=== PATIENT | female | born 1985 | race Hispanic/Latino ===

== ENCOUNTER 2019-09-15 17:10 | Inpatient (IN) | payer BC, SELFPAY ==
[~2019-09-15 17:10] MED LIST: Lidocaine 2% MPF 10 ML AMP (For Epidural Use) ONE
[2019-09-15] MEDS ORDERED: hydrALAZINE 20 MG/ML VIAL SLOW IVP PRN (18:44)
[2019-09-15 19:09] LABS: #Eosinphils 0.1 thou/uL (0.0-0.7); #Lymphocytes 1.3 thou/uL (1.20-3.40); #Monocytes 0.4 thou/uL (0.11-0.59); #Neutrophils 5.8 thou/uL (1.40-6.50); %Basophils 0.5 % (0.0-1.0); %Eosinophils 1.8 % (0.0-10.0); %Lymphocytes 16.9 % (21.0-51.0); %Monocytes 5.1 % (0.0-10.0); %Neutrophils 75.7 % (42.0-75.0); Hemoglobin 11.1 g/dL (12.0-16.0); Mean Corpuscular HGB CONC 34.1 g/dL (32.0-36.0); Mean Corpuscular Hemoglobin 27.9 pg (27.0-31.0); Mean Corpuscular Volume 81.8 fL (78.0-98.0); Platelet Count 193 thou/uL (130-400); RBC Distribution Width 13.6 % (11.5-14.5); Red Blood Cell (RBC) Count 3.99 mill/uL (4.20-5.40); White Blood Cell (WBC) Count 7.7 thou/uL (4.8-10.8)
[2019-09-15 19:24] LABS: ALT (SGPT) 33 U/L (8-55); AST (SGOT) 52 U/L (5-34); Albumin 3.2 g/dL (3.5-5.0); Alkaline Phosphatase 268 U/L (40-110); Anion Gap 12 mmol/L (10-20); BUN (Urea Nitrogen) 8 mg/dL (7.0-18.7); Bilirubin, Total 0.2 mg/dL (0.2-1.2); Calc. Creatinine Clearance 0 mL/min (70-130); Calcium 8.6 mg/dL (7.8-10.44); Carbon Dioxide 22 mmol/L (22-29); Chloride 107 mmol/L (98-107); Estimated GFR-MDRD Greater than 90; Globulin 3.8 g/dL (2.4-3.5); Glucose 86 mg/dL (70-105); Potassium 3.8 mmol/L (3.5-5.1); Sodium 137 mmol/L (136-145); Uric Acid 4.1 mg/dL (2.6-6.0)
[2019-09-15 19:25] LABS: Creatinine, Urine Less than 20.00 mg/dL (47-110); Protein, Urine Random Quant Less than 10 mg/dL (1-14)
[2019-09-15] MEDS ORDERED: Lidocaine 1% (PF) 30 ML VIAL SC PRN (20:13)
[2019-09-15] MEDS ORDERED: NS / Oxytocin 40 units/1000ml 1,000 ML IV PRN (20:13)
[2019-09-15] MEDS ORDERED: Promethazine HCl 25 MG/ML VIAL IM PRN (20:13)
[2019-09-15] MEDS ORDERED: Ondansetron PF 4 MG/2 ML Vial IVP PRN (20:13)
[2019-09-15] MEDS ORDERED: Ibuprofen 800 MG TAB PO PRN (20:13)
[2019-09-15] MEDS ORDERED: Misoprostol 100 MCG TAB VAG SCH (20:15)
--- NOTE | 2019-09-15 20:24 | PDOC.FPROB ---
FMR OB H&P: HPI - History of Present Illness Chief Complaint: Sent over for elevated BP's Indentification: 34 year old at 38.6 wks by LMP/9.2 History of Present Illness: 34 year old at 38.6 wks by LMP/9.2 presents with elevated BP's during ultrasound clinic this afternoon. BP's 140's and 150's in clinic. Patient sent over for evaluation of pre-E. Patient high risk with rheumatoid arthritis on Humira during which was discontinued around 34 WGA. Patient denies scotoma, RUQ pain, swelling, chest pain, shortness of breath. Patient endorses good movement. 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: No history of STD's - Surgical History Sx History: Denies - Social History Social History: Denies tobacco, alcohol, or drug use FMR OB H&P: Medications - Current Allergies/Adverse Reactions: Allergies Allergy/AdvReac Type Severity Reaction Status Date / Time No Known Allergies Allergy Verified 09/15/19 18:59 FMR OB H&P: ROS - Review of Systems General: denies: fever/chills, weight/appetite/sleep changes Eyes: denies: vision changes, scotomas ENT: denies: nasal congestion, rhinorrhea, sore throat Cardiovascular: denies: chest pain, palpitation, edema Respiratory: denies: cough, congestion Gastrointestinal: denies: abdominal pain, nausea, vomiting, diarrhea Genitourinary (Female): denies: dysuria, vaginal discharge, vaginal bleeding, contractions Musculoskeletal: reports: pain (chronic RA related aches and pains). denies: redness, swelling Neurologic: denies: numbness, syncope Integumentary: denies: itching, rash Hematologic/Lymphatic: denies: prolonged or excessive bleeding Psychological: denies: depression, anxiety FMR OB H&P: Vital Signs - Maternal Vital signs: BP Pulse 110 Afebrile - Heart Tones Baseline: 130 Variability: moderate Acceleration: present Deceleration: absent [place] contractions every: Reactive FMR OB H&P: Physical Exam - Physical Exam General: NAD, awake, alert and oriented HEENT: MMM, grossly normal vision, grossly normal hearing Heart: RRR, no murmurs/rubs/gallops, pulses present General: CTAB, no respiratory distress Abdomen: soft, gravid, non-tender Musculoskeletal: pulses present, FROM in all four extremities Neurological: DTR +2, no clonus, no tremor, no focal deficit Skin: no rash, capillary refill <2 seconds Lymphatic: no unusual bruising or bleeding, no purpura Psychiatric: intact recent and remote memory, good judgement and insight, normal mood and affect FMR OB H&P: Results - Labs Lab results: Laboratory Results - last 24 hr 09/15/19 09/15/19 09/15/19 18:54 18:54 18:54 WBC 7.7 RBC 3.99 L Hgb 11.1 L Hct 32.6 L MCV 81.8 MCH 27.9 MCHC 34.1 RDW 13.6 Plt Count 193 MPV 10.0 Neutrophils % 75.7 H Lymphocytes % 16.9 L Monocytes % 5.1 Eosinophils % 1.8 Basophils % 0.5 Neutrophils # 5.8 Lymphocytes # 1.3 Monocytes # 0.4 Eosinophils # 0.1 Basophils # 0.0 Sodium 137 Potassium 3.8 Chloride 107 Carbon Dioxide 22 Anion Gap 12 BUN 8 Creatinine 0.58 L Estimated GFR (MDRD) Greater than 90 Glucose 86 Uric Acid 4.1 Calcium 8.6 Total Bilirubin 0.2 AST 52 H ALT 33 Alkaline Phosphatase 268 H Serum Total Protein 7.0 Albumin 3.2 L Globulin 3.8 H Albumin/Globulin Ratio 0.8 L U Random Total Protein Less than 10 Urine Creatinine Less than 20.00 L FMR OB H&P: A/P - Problem List (1) Gestational hypertension Current Visit: Yes Status: Acute Code(s): O13.9 - GESTATIONAL HTN W/O SIGNIFICANT PROTEINURIA, UNSP TRIMESTER (2) Rheumatoid arthritis Current Visit: Yes Status: Acute Code(s): M06.9 - RHEUMATOID ARTHRITIS, UNSPECIFIED (3) Term Current Visit: Yes Status: Acute Code(s): Z34.90 - ENCNTR FOR SUPRVSN OF NORMAL , UNSP, UNSP TRIMESTER Disposition: 34 year old at 38.6 wks by LMP/9.2 wk chioma presents for pre-E/gHTN workup. Patient noted to have several elevated BP's during triage. Will admit for induction for gHTN. mIOL for gHTN - BP's have been elevated >140/90 over a period of four hours - Pre-E labs unremarkable aside from elevated AST, which was not two times upper limit of normal - SVE: /-2, posterior, soft - Will proceed with cytotec - Monitor for signs/symptoms of pre-E severe features, including elevated BP's > 160/110. If severe features arise, start Mg. Rheumatoid arthritis - Patient on humira until 32 wks - She did not require any PRN steroids during this - She has had routine q4k growth scans which have been S=D; no concern for IUGR - Weekly testing has been reassuring. BPP 8/8 today. Anemia of - Patient on iron supplementation during . Dispo: Admit to L&D for mIOL for gHTN. Will start with cytotec induction. Discussion: Date/Time: 09/15/192017 This H&P was discussed with Dr. Watt who agrees with the above documentation and plan. Signature: Obdulia Fleming DO PGY-2 Addendum - Attending - Attending Attestation Date/Time: 09/15/19 0412 I personally evaluated the patient and discussed the management with Dr. Fleming. I agree with the History, Examination, Assessment and Plan documented above with any addition or exceptions noted below.
[2019-09-15] MEDS: Lactated Ringer's 1,000 ML IV SCH (21:19)
[2019-09-15 21:48] LABS: Hemoglobin 11.1 g/dL (12.0-16.0); Mean Corpuscular HGB CONC 33.8 g/dL (32.0-36.0); Mean Corpuscular Hemoglobin 27.5 pg (27.0-31.0); Mean Corpuscular Volume 81.3 fL (78.0-98.0); Mean Platelet Volume 10.9 fL (7.4-10.4); Platelet Count 203 thou/uL (130-400); RBC Distribution Width 13.9 % (11.5-14.5); Red Blood Cell (RBC) Count 4.02 mill/uL (4.20-5.40); White Blood Cell (WBC) Count 8.3 thou/uL (4.8-10.8)
[2019-09-15 22:24] LABS: Syphilis Antibody Nonreactive (Nonreactive); Syphilis Antibody Index 0.04 S/CO (<1.00 Non-Reactive)
[2019-09-15 22:56] LABS: Hep B Surf Ag Non-Reactive S/CO (NonReactive)
[2019-09-16] MEDS: Misoprostol 100 MCG TAB VAG SCH ×5 (00:19→23:51)
[2019-09-16] MEDS: Lactated Ringer's 1,000 ML IV SCH (00:30)
--- NOTE | 2019-09-16 02:44 | PDOC.LDPN ---
Labor & Delivery Progress Note - Subjective Subjective: comfortable, no concerns - Objective Vital signs reviewed and normal: yes General: NAD, resting, breathing through contractions Uterine fundus: non tender SVE: 50/-2 Dilation: 1 Effacement: 50% Station: -2 FHT: category 1, variability present [place] contractions every: infrequent Other exam findings: cytotec placed at 0020 - Assessment (1) Term Code(s): Z34.90 - ENCNTR FOR SUPRVSN OF NORMAL , UNSP, UNSP TRIMESTER Current Visit: Yes Status: Acute Plan: continue plan of care, labor augmentation -: 34 year old at 38.6 wks by LMP/9.2 wk sono presents for pre-E/gHTN workup. Patient noted to have several elevated BP's during triage. Admitted for induction for gHTN. mIOL for gHTN - BP's have been elevated systolic 140s/80s-90s over past 4 hours - Pre-E labs unremarkable aside from elevated AST, which was not two times upper limit of normal - SVE: /-2, posterior, soft @ 0015 - Cytotec x 1 placed at 0015 - Monitor for signs/symptoms of pre-E severe features, including elevated BP's > 160/110. If severe features arise, start Mg. Rheumatoid arthritis - Patient on humira until 32 wks - She did not require any PRN steroids during this - She has had routine q4k growth scans which have been S=D; no concern for IUGR - Weekly testing has been reassuring. BPP 8/8 today. Anemia of - Patient on iron supplementation during . Dispo: Stable, continue to monitor vitals. If any severe range BP will start Mag. Next check around 0400 and anticipate additional cytotec placement at that time. Addendum - Attending - Attending Attestation Date/Time: 09/16/19 5103 I personally evaluated the patient and discussed the management with Dr. Steinberg. I agree with the History, Examination, Assessment and Plan documented above with any addition or exceptions noted below.
[2019-09-16 03:34] VITALS: BMI 28.7
--- NOTE | 2019-09-16 05:31 | PDOC.OBLPN ---
FMR OB Labor PN: Subj - Interval History Hospital Day: 1 Chief Complaint: Elevated BP Indentification: FMR OB Labor PN: Obj - Maternal Vital signs: BP: [] HR: [] RR: [] Tmax: [] Pox: []% on [] Wt: [] FMR OB Labor PN: Exam - Physical Exam General: NAD HEENT: normocephalic and atraumatic, PERRLA, EOMI, MMM, conjunctiva clear, no scleral icterus, grossly normal vision, grossly normal hearing, normal nasal mucosa, oropharynx clear Neck: supple, FROM, trachea midline, no LAD Chest: non-tender to palpation, no lesions Breast: symmetric Heart: RRR, normal S1/S2, no murmurs/rubs/gallops, pulses present, no edema General: CTAB, no respiratory distress, good air movement, no rales/rhonchi, no wheezing, no retractions Abdomen: gravid, non-tender, no masses Musculoskeletal: pulses present, FROM in all four extremities, no misalignment/ asymmetry, no atrophy Neurological: no clonus, no tremor, no focal deficit Skin: no rash, no jaundice Lymphatic: no unusual bruising or bleeding, no purpura, no petechia Psychiatric: intact recent and remote memory, normal mood and affect - Pelvic Exam Vulva: normal hair distribution, no masses, no lesions, normal rugae SVE: 9/100/1 Diggs score: 13 Membranes: Intact Presentation: Vertex FMR OB Labor PN: Data - Labs Lab results: Laboratory Results - last 24 hr 09/15/19 09/15/19 09/15/19 18:54 18:54 18:54 WBC 7.7 RBC 3.99 L Hgb 11.1 L Hct 32.6 L MCV 81.8 MCH 27.9 MCHC 34.1 RDW 13.6 Plt Count 193 MPV 10.0 Neutrophils % 75.7 H Lymphocytes % 16.9 L Monocytes % 5.1 Eosinophils % 1.8 Basophils % 0.5 Neutrophils # 5.8 Lymphocytes # 1.3 Monocytes # 0.4 Eosinophils # 0.1 Basophils # 0.0 Sodium 137 Potassium 3.8 Chloride 107 Carbon Dioxide 22 Anion Gap 12 BUN 8 Creatinine 0.58 L Estimated GFR (MDRD) Greater than 90 Glucose 86 Uric Acid 4.1 Calcium 8.6 Total Bilirubin 0.2 AST 52 H ALT 33 Alkaline Phosphatase 268 H Serum Total Protein 7.0 Albumin 3.2 L Globulin 3.8 H Albumin/Globulin Ratio 0.8 L U Random Total Protein Less than 10 Urine Creatinine Less than 20.00 L Syphilis IgG/IgM Ab Hep Bs Antigen Blood Type Antibody Screen 09/15/19 09/15/19 09/15/19 21:29 21:29 21:29 WBC RBC Hgb Hct MCV MCH MCHC RDW Plt Count MPV Neutrophils % Lymphocytes % Monocytes % Eosinophils % Basophils % Neutrophils # Lymphocytes # Monocytes # Eosinophils # Basophils # Sodium Potassium Chloride Carbon Dioxide Anion Gap BUN Creatinine Estimated GFR (MDRD) Glucose Uric Acid Calcium Total Bilirubin AST ALT Alkaline Phosphatase Serum Total Protein Albumin Globulin Albumin/Globulin Ratio U Random Total Protein Urine Creatinine Syphilis IgG/IgM Ab Nonreactive Hep Bs Antigen Non-Reactive Blood Type O POSITIVE Antibody Screen NEGATIVE 09/15/19 09/15/19 21:29 21:44 WBC 8.3 RBC 4.02 L Hgb 11.1 L Hct 32.7 L MCV 81.3 MCH 27.5 MCHC 33.8 RDW 13.9 Plt Count 203 MPV 10.9 H Neutrophils % Lymphocytes % Monocytes % Eosinophils % Basophils % Neutrophils # Lymphocytes # Monocytes # Eosinophils # Basophils # Sodium Potassium Chloride Carbon Dioxide Anion Gap BUN Creatinine Estimated GFR (MDRD) Glucose Uric Acid Calcium Total Bilirubin AST ALT Alkaline Phosphatase Serum Total Protein Albumin Globulin Albumin/Globulin Ratio U Random Total Protein Urine Creatinine Syphilis IgG/IgM Ab Hep Bs Antigen Blood Type O POSITIVE Antibody Screen FMR OB Labor PN: A/P - Problem List (1) Gestational hypertension Current Visit: Yes Status: Acute Code(s): O13.9 - GESTATIONAL HTN W/O SIGNIFICANT PROTEINURIA, UNSP TRIMESTER (2) Rheumatoid arthritis Current Visit: Yes Status: Acute Code(s): M06.9 - RHEUMATOID ARTHRITIS, UNSPECIFIED (3) Term Current Visit: Yes Status: Acute Code(s): Z34.90 - ENCNTR FOR SUPRVSN OF NORMAL , UNSP, UNSP TRIMESTER Disposition: Patient is a 34 y/o at 38.6W by LMP c/w 9.2W US who presents for evaluation of suspected Pre-Eclampsia/gHTN who subsequently had several elevated BP's during triage and was subsequently admitted for induction for gHTN. 1. mIOL for gHTN - SBP's have been elevated to 140s/80s-90s - no severe-range pressure since admission - Pre-E labs unremarkable aside from elevated AST, which was not 2x upper limit of normal - SVE (0015): 1/50/-2 - SVE (0400): 2/90/-1 - SVE (0830): 9/100/1 - Cytotec x 2 placed at 0015, 0400 - Continue to monitor for signs/symptoms of pre-E severe features, including elevated BP's >160/110 - If severe features arise, will initiate Mg - Continue Q4H SVEs - LR @ 125 ml/hr - Epidural in place - Membranes intact - Will notify patient's PCP of rapid progress 2. Rheumatoid arthritis - Patient was on Humira until 32W EGA - has not required PRN steroids during this - Routine Q4W growth scans which have been S=D; no concern for IUGR - Weekly testing has been reassuring - BPP (09/14): 02/19 3. Anemia of - Patient on Iron supplementation during Dispo: Patient is currently stable on L&D with appropriate maternal and monitoring in place for ongoing mIOL. Will continue to monitor vitals for severe -range BPs and will plan to start Mg if required. Adjunct methods of labor augmentation not indicated at this time - will continue with active management of labor. Expected LOS > 48H Discussion: Date/Time: 09/16/19 4093 This H&P was discussed with [] and [] who agree with the above documentation and plan. Addendum - Attending - Attending Attestation Date/Time: 09/16/19 0881 I personally evaluated the patient and discussed the management with Dr. Fleming this morning. I agree with the History, Examination, Assessment and Plan documented above with any addition or exceptions noted below.
[2019-09-16] MEDS ORDERED: Butorphanol Tartrate 1 MG/ML VIAL SLOW IVP PRN (05:49)
[2019-09-16] MEDS ORDERED: Butorphanol Tartrate 1 MG/ML VIAL ONE (05:53)
--- NOTE | 2019-09-16 06:06 | PDOC.LDPN ---
Labor & Delivery Progress Note - Subjective Subjective: comfortable, no concerns - Objective Vital signs reviewed and normal: yes General: NAD, resting Uterine fundus: non tender SVE: /-1 Dilation: 2 Effacement: 90% Station: -1 FHT: category 1, variability present [place] contractions every: 5 min - Assessment (1) Term Code(s): Z34.90 - ENCNTR FOR SUPRVSN OF NORMAL , UNSP, UNSP TRIMESTER Current Visit: Yes Status: Acute Plan: continue plan of care, labor augmentation -: 34 year old at 38.6 wks by LMP/9.2 wk sono presents for pre-E/gHTN workup. Patient noted to have several elevated BP's during triage. Admitted for induction for gHTN. mIOL for gHTN - BP's have been systolic 120s-130s/60s-80s over past 4 hours - Pre-E labs unremarkable aside from elevated AST, which was not two times upper limit of normal - SVE: /50/-2, posterior, soft @ 0015 - SVE 2/90/-1, posterior, soft @ 0430 - Cytotec x 1 placed at 0015, 0430 - Monitor for signs/symptoms of pre-E severe features, including elevated BP's > 160/110. If severe features arise, start Mg. Rheumatoid arthritis - Patient on humira until 32 wks - She did not require any PRN steroids during this - She has had routine q4k growth scans which have been S=D; no concern for IUGR - Weekly testing has been reassuring. BPP 8/8 today. Anemia of - Patient on iron supplementation during . Dispo: Stable, continue to monitor vitals. If any severe range BP will start Mag. Next check around 0830. Addendum - Attending - Attending Attestation Date/Time: 09/16/19 0832 I personally evaluated the patient and discussed the management with Dr. Steinberg. I agree with the History, Examination, Assessment and Plan documented above with any addition or exceptions noted below.
[2019-09-16] MEDS ORDERED: Fentanyl 4 mcg/Bup 0.1% Cadd 100 ML ONE (06:40)
[2019-09-16] MEDS ORDERED: Bupivacaine 0.5% 10 ML VIAL ONE (06:57)
[2019-09-16] MEDS ORDERED: Fentanyl 100 MCG/2 ML VIAL ONE (06:57)
[2019-09-16] MEDS ORDERED: Bupivacaine 0.25% 10 ML VIAL EPIDURAL ONE (07:10)
[2019-09-16] MEDS ORDERED: Fentanyl 100 MCG/2 ML VIAL I-THECAL ONE (08:04)
[2019-09-16] MEDS ORDERED: Acetaminophen 325 MG TAB PO PRN (08:05)
[2019-09-16] MEDS ORDERED: Lactated Ringer's 500 ML IV PRN (08:05)
[2019-09-16] MEDS ORDERED: Promethazine HCl 25 MG/ML VIAL IM PRN (08:05)
[2019-09-16] MEDS ORDERED: diphenhydrAMINE 50 MG/ML VIAL IVP PRN (08:05)
[2019-09-16] MEDS ORDERED: Naloxone HCl 0.4 mg/ml Vial IVP PRN ×2 (08:05)
[2019-09-16] MEDS ORDERED: Ondansetron PF 4 MG/2 ML Vial IVP PRN (08:05)
[2019-09-16] MEDS ORDERED: EPHEDRINE 25 MG/5 ML SYRINGE SLOW IVP PRN (08:05)
[2019-09-16] MEDS ORDERED: Fentanyl 4 mcg/Bupivacaine 0.1% Cassette 100 ML EPIDURAL SCH (08:15)
[2019-09-16] MEDS ORDERED: Communication Order-Pharmacy FS SCH (08:15)
[2019-09-16] MEDS ORDERED: Lidocaine 1% (PF) 30 ML VIAL ONE (08:22)
[2019-09-16] MEDS ORDERED: NS / Oxytocin 40 units/1000ml 1,000 ML ONE ×2 (08:22→12:22)
[2019-09-16] MEDS ORDERED: Misoprostol 200 MCG TAB ONE (10:26)
[2019-09-16] MEDS ORDERED: Methylergonovine 0.2 MG/ML VIAL ONE (10:26)
[2019-09-16] MEDS ORDERED: Methylergonovine 0.2 MG/ML VIAL IM PRN (12:08)
[2019-09-16] MEDS ORDERED: Benzocaine-Menthol 82.5 ML CAN TOP PRN (12:08)
[2019-09-16] MEDS ORDERED: NS / Oxytocin 40 units/1000ml 1,000 ML IV SCH (12:08)
[2019-09-16] MEDS ORDERED: Misoprostol 200 MCG TAB VAG PRN (12:08)
[2019-09-16] MEDS ORDERED: Methylergonovine 0.2 MG TAB PO PRN (12:08)
[2019-09-16] MEDS ORDERED: Adacel (T-DAP) 0.5 ML SYRINGE IM ONE (12:08)
[2019-09-16] MEDS ORDERED: Preparation H Ointment 28 GM TUBE PR PRN (12:08)
[2019-09-16] MEDS ORDERED: hydrALAZINE 20 MG/ML VIAL SLOW IVP PRN (12:08)
[2019-09-16] MEDS ORDERED: Bisacodyl 10 MG SUPP PR PRN (12:08)
[2019-09-16] MEDS ORDERED: Milk Of Magnesia 30 ML UDCUP PO PRN (12:08)
[2019-09-16] MEDS ORDERED: Lanolin Ointment 7 GM TUBE TOP PRN (12:08)
--- NOTE | 2019-09-16 12:10 | PDOC.OPDEL ---
OB Operative/Delivery Note Delivery Dr/Surgeon: Dr. Gama Swanson, Dr. Obdulia Fleming, Dr. Aleksandar Urbina Pre-Delivery Diagnosis: active labor, other (Medical Induction of Labor) Procedure/Post Delivery Dx: spontaneous vaginal delivery Weeks gestation: 38 (6) Anesthesia: epidural - Findings A Sex: male - 1 min: 9 - 5 min: 9 - Additional Findings/Plan Placenta delivered: spontaneous Repaired Obstetrical Laceration: 2nd degree (Vertical 2nd Degree Laceration ~3 cm and extending inferiorly, located at 6 o'clock position. Bilateral 1st Degree Lacerations ~1-2 cm and extending laterally within the vaginal mucosa, located at the 3 and 9 o'clock positions) Estimated blood loss: 342 ml Compilations/Other Findings: Pre-Operative Diagnosis: 1. Term Intrauterine , mIOL 2. Matneral Hx of gHTN Post-Operative Diagnosis: 1. Term Intrauterine , Delivered 2. Same as Above Indications: a 34 y/o female presents to clinic with SBPs in the 140s, subsequently presented to L&D for mIOL. Normal of a viable male infant born at 1018 on [birth year] and delivered over an intact perineum in the KELLI position with epidural anesthesia utilized for pain control. The anterior shoulder and then the remainder of the body was delivered without incident. The head was held down and the mouth and nares were bulb suctioned. There was no meconeum or nuchal cord noted. The cord was clamped , cut and cord blood was collected. The placenta delivered intact in the [place] presentation with a 3 vessel cord noted upon further inspection. Fundal massage was performed and the fundus was appropriately firm. The cervix and vagina were inspected and found to have a 2nd degree perineal laceration at the 6 o'clock position, repaired with 3-0 Vicryl sutures, and bilateral 1st degree vaginal lacerations at the 3 and 9 o'clock positions, with the laceration at the 9 o'clock laceration being repaired with 3-0 chromic sutures. The vaginal introitus was packed and hemostasis was achieved. The was placed with the mother in order to establish [id number] contact. APGARS were 9 and 9 at 1 and 5 minutes, respectively. The patient tolerated the procedure well. QBL: 342 ml. Post delivery plan: routine recovery
[2019-09-16] MEDS: Ibuprofen 800 MG TAB PO SCH ×2 (14:06→22:04)
--- NOTE | 2019-09-16 15:20 | PDOC.BPN ---
- Brief Progress Note Patient is feeling well overall. Notes some mild back pain and abdominal cramping. Has gotten out of bed but not urinated yet. Removed vaginal packing. Nursing to weigh pads. Plan to closely monitor bleeding in the coming hours to ensure decrease. Patient wanted to try to urinate.
[2019-09-16] MEDS: Ferrous Sulfate 325 MG TAB PO SCH (17:38)
[2019-09-16] MEDS: Docusate Calcium (SURFAK) 240 MG CAP PO SCH (22:05)
[2019-09-17] MEDS: Ibuprofen 800 MG TAB PO SCH ×3 (05:59→21:16)
--- NOTE | 2019-09-17 06:05 | PDOC.PP ---
Post Progress Note Post Day #: 1 Subjective: Patient doing well. No significant overnight events. Vaginal packing removed yesterday afternoon. Bleeding has been no more than a period per patient. She denies shortness of breath, chest pain, N/V. She has a minimal amount of pain in her vaginal area. PO intake tolerated: yes Flatus: yes Ambulation: yes Vital Signs (12 hours) Temp Pulse Resp BP Pulse Ox 09/17/19 04:00 98.9 F 96 18 128/79 09/17/19 00:15 98.7 F 101 H 18 117/62 09/16/19 20:17 99.3 F 95 12 125/71 97 09/16/19 18:20 99.6 F 86 17 132/77 97 Weight Weight 85.729 kg - Physical Examination General: NAD Cardiovascular: no m/r/g, RRR Respiratory: clear to auscultation bilaterally, non-labored breathing Abdominal: + bowel sounds, lochia (like period), no distention, appropriately TTP Fundus firm & at: below umbilicus Skin: no rash Neurological: no gross focal deficits Psychiatric: A&Ox3, normal affect Result Diagrams: 09/15/19 21:29 09/15/19 18:54 Additional Labs: Post Labs Blood Type O POSITIVE 09/15/19 21:44 Hep Bs Antigen Non-Reactive S/CO (NonReactive) 09/15/19 21:29 (1) Gestational hypertension Code(s): O13.9 - GESTATIONAL HTN W/O SIGNIFICANT PROTEINURIA, UNSP TRIMESTER Status: Acute (2) Rheumatoid arthritis Code(s): M06.9 - RHEUMATOID ARTHRITIS, UNSPECIFIED Status: Acute (3) Term delivered Code(s): O80 - ENCOUNTER FOR FULL-TERM UNCOMPLICATED DELIVERY Status: Acute - Assessment/Plan 34 year old --> P1011 delivered TAGA M at 40.0 wks by Routine PP care - Patient meeting PP milestones - Lochia like that of a period; counseled to tell nurse if bleeding picked up - Dermaplast as needed for discomfort - Continue TAYLA ibuprofen - Rubella immune, Rh positive gHTN - BP appears well controlled in PP period - BP's <140/90 - Continue to monitor Rheumatoid arthritis - Patient opting not to breastfeed - Likely she can start back on Humira; will defer to fishing game warden as to when to start this back - Steroid PRN for flares Dispo: Patient stable. Anticipate d/c tomorrow. Addendum - Attending - Attending Attestation Date/Time: 09/17/19 7452 I personally evaluated the patient and discussed the management with Dr. Mayo. I agree with the History, Examination, Assessment and Plan documented above with any addition or exceptions noted below.
[2019-09-17] MEDS: Ferrous Sulfate 325 MG TAB PO SCH ×2 (09:13→17:43)
[2019-09-17] MEDS: Docusate Calcium (SURFAK) 240 MG CAP PO SCH ×2 (09:14→21:16)
[2019-09-17] MEDS: Prenatal Vitamin 1 TAB PO SCH (09:14)
[2019-09-18] MEDS: Ibuprofen 800 MG TAB PO SCH ×2 (06:08→13:58)
[2019-09-18 08:51] VITALS: BP 122/74; TEMP 99.2
[2019-09-18] MEDS: Ferrous Sulfate 325 MG TAB PO SCH (09:41)
[2019-09-18] MEDS: Prenatal Vitamin 1 TAB PO SCH (09:42)
[2019-09-18] MEDS: Docusate Calcium (SURFAK) 240 MG CAP PO SCH (09:42)
--- NOTE | 2019-09-18 13:23 | PDOC.PP ---
Post Progress Note Post Day #: 2 Subjective: Patient doing well. No significant overnight events. Patient tolerating PO. Lochia minimal. PO intake tolerated: yes Flatus: yes Ambulation: yes Vital Signs (12 hours) Temp Pulse Resp BP Pulse Ox 09/18/19 08:00 99.2 F 112 H 12 122/74 99 09/18/19 04:40 98.2 F 85 18 135/78 Weight Weight 85.729 kg - Physical Examination General: NAD Cardiovascular: RRR Respiratory: clear to auscultation bilaterally, non-labored breathing Abdominal: + bowel sounds, lochia (scant), no distention, appropriately TTP Fundus firm & at: below umbilicus Neurological: no gross focal deficits Psychiatric: A&Ox3, normal affect Result Diagrams: 09/15/19 21:29 09/15/19 18:54 Additional Labs: Post Labs Blood Type O POSITIVE 09/15/19 21:44 Hep Bs Antigen Non-Reactive S/CO (NonReactive) 09/15/19 21:29 (1) Gestational hypertension Code(s): O13.9 - GESTATIONAL HTN W/O SIGNIFICANT PROTEINURIA, UNSP TRIMESTER Status: Acute (2) Rheumatoid arthritis Code(s): M06.9 - RHEUMATOID ARTHRITIS, UNSPECIFIED Status: Acute (3) Term delivered Code(s): O80 - ENCOUNTER FOR FULL-TERM UNCOMPLICATED DELIVERY Status: Acute - Assessment/Plan 34 year old --> P1011 delivered TAGA M infant at 40.0 wks by Routine PP care - Patient meeting PP milestones - Lochia minimal - Dermaplast as needed for discomfort - Continue TAYLA ibuprofen - Rubella immune, Rh positive gHTN - BP appears well controlled in PP period - BP's <140/90 - Continue to monitor Rheumatoid arthritis - Patient opting not to breastfeed - Likely she can start back on Humira; will defer to mail teller as to when to start this back - Steroid PRN for flares Dispo: Plan for d/c home today Addendum - Attending - Attending Attestation Date/Time: 09/18/19 4209 I personally evaluated the patient. I agree with the History, Examination, Assessment and Plan documented above with any addition or exceptions noted below.
== END 2019-09-18 15:45 | disposition home or self-care (01) | DRG 807 ==
LOC: L&D/OP 17:10 → L&D 20:40 → 3SW 09-16 13:08
PROVIDERS: ADMIT Emergency Medicine; ATTEND Emergency Medicine
PROC: 10907ZC Drainage of Amniotic Fluid, Therapeutic from Products of Conception, Via Natural or Artificial Opening (ICD-10-PCS; 2019-09-15)
PROC: 3E0P7VZ Introduction of Hormone into Female Reproductive, Via Natural or Artificial Opening (ICD-10-PCS; 2019-09-15)
PROC: 10E0XZZ Delivery of Products of Conception, External Approach (ICD-10-PCS; principal; 2019-09-17)
PROC: 0KQM0ZZ Repair Perineum Muscle, Open Approach (ICD-10-PCS; 2019-09-17)
PROC: 10E0XZZ Delivery of Products of Conception, External Approach (ICD-10-PCS; 2019-09-17)
DX: O13.4 Gestational [pregnancy-induced] hypertension without significant proteinuria, complicating childbirth (principal); Z37.0 Single live birth; Z3A.38 38 weeks gestation of pregnancy; M06.9 Rheumatoid arthritis, unspecified; O99.89 Other specified diseases and conditions complicating pregnancy, childbirth and the puerperium; O99.02 Anemia complicating childbirth; D64.9 Anemia, unspecified; Z79.899 Other long term (current) drug therapy; O70.1 Second degree perineal laceration during delivery
CPT/HCPCS: 36415; 51702; 80053; 82570; 84156; 84550; 85025; 86780; 86850; 86900; 86901; 87340; 99285; J0595; J2001; J2210; J3010; J3490